=== PATIENT | female | born 1970 | race Caucasian/White ===

== ENCOUNTER 2024-10-08 15:31 | Emergency (ER) | payer OTHER ==
[~2024-10-08] VITALS: Ht 167.6 cm; Wt 72.8 kg
[2024-10-08] MEDS ORDERED: SODIUM CHLORIDE 0.9% 1,000 ML IV ONE (17:00)
[2024-10-08] MEDS ORDERED: HYDROmorphone HCL 1 MG/ML SYR IV PRN (17:00)
[2024-10-08 17:06] LABS: BASOPHILS 0.3 % (0.1-1.2); EOSINOPHILS 0.2 % (0.7-5.8); LYMPHOCYTES 19.9 % (19.3-51.7); MCH 28.8 PG (25.6-32.2); MCHC 33.6 g/dL (32.2-35.5); MCV 85.5 fL (79.4-94.8); MONOCYTES 7.5 % (4.7-12.5); NEUTROPHILS 71.7 % (34.0-71.1); RBC 5.11 M/uL (3.93-5.22)
[2024-10-08 17:21] LABS: ALT (SGPT) 42.0 U/L (14-59); AST (SGOT) 28.0 U/L (15-37); GLOMERULAR FILTRATION RATE,EST 78.0 mL/min (>60); PROTEIN, TOTAL 8.0 g/dL (6.4-8.2); UREA NITROGEN 10.0 mg/dL (7-18)
[2024-10-08 17:45] LABS: BLOOD/HGB, URINE NEGATIVE (Negative); KETONE, URINE TRACE (Negative); LEUK ESTERASE, URINE NEGATIVE (negative); NITRITE, URINE NEGATIVE (negative)
[2024-10-08] MEDS ORDERED: METRONIDAZOLE500 MG PO (18:47)
[2024-10-08] MEDS ORDERED: ONDANSETRON ODT4 MG PO (18:47)
[2024-10-08] MEDS ORDERED: HYDROCODON-ACE1 EA10 PO (18:47)
[2024-10-08] MEDS ORDERED: AMOX TR-K CLV1 EAC1 PO (18:47)
[2024-10-08] MEDS ORDERED: AMOXICILLIN/CLAVULANATE K 875 MG TAB PO ONE (19:00)
[2024-10-08] MEDS ORDERED: ONDANSETRON 4 MG HOME.PACK SL ONE (19:15)
[2024-10-08] MEDS ORDERED: HYDROCODONE BIT/ACETAMINOPHEN 5/325 MG 1 TAB HOME.PACK PO ONE (19:15)
[2024-10-08 19:23] VITALS: BP 123/78
== END 2024-10-08 19:25 | disposition home or self-care (01) ==
LOC: ED 15:31
PROVIDERS: Emergency Medicine
DX: K57.32 Diverticulitis of large intestine without perforation or abscess without bleeding (principal); Z88.2 Allergy status to sulfonamides
CPT/HCPCS: 36415; 74177; 80053; 81003; 85025; 96375; 99284-25; A9270; J1171; J2405; J7030; Q9967

== ENCOUNTER 2025-03-01 11:57 | Day surgery (SDC) | payer OTHER ==
[~2025-03-01] VITALS: Ht 167.6 cm; Wt 73.0 kg
[~2025-03-01 11:57] MED LIST: AMOX TR-K CLV1 EAC1 PO; BENADRYL25 MG PO; CLONAZEPAM1 MG PO; FLUOXETINE HCL40 MG PO; HYDROCODON-ACE1 EA10 PO; IBLOOD GLUCOSE TEST STRIP 1 EA TEST VI PRN; LACTATED RINGER'S 1,000 ML IV SCH; LIDOCAINE HCL 1% 5 ML SDV INJ ONE; METRONIDAZOLE500 MG PO; MULTI VITAMIN1 EACH PO; OMEPRAZOLE20 MG PO; ONDANSETRON ODT4 MG PO; VITAMIN C500 M4 PO
[2025-03-01 12:25] VITALS: BP 128/78
[2025-03-01] MEDS ORDERED: LIDOCAINE HCL 2% 5 ML SDV ONE (13:13)
--- NOTE | 2025-03-01 14:22 | NUR ---
03/01/25 1422 Micki Germain 1418: PT ARRIVES TO PACU NON AROUSAL. PT CONNECTED TO MONITORS. REPORT RECEIVED FROM PREVENTIVE MEDICINE OFFICER AND CHARGE PREPARATION TECHNICIAN.
[2025-03-01 15:16] VITALS: BP 138/97
[2025-03-02] MEDS ORDERED: HYDROCODON-ACE1 EA10 PO (19:44)
== END 2025-03-01 15:28 | disposition home or self-care (01) ==
LOC: DS 11:57
PROVIDERS: ATTEND Surgery
PROC: 0DBN8ZX Excision of Sigmoid Colon, Via Natural or Artificial Opening Endoscopic, Diagnostic (ICD-10-PCS; 2025-03-01)
PROC: 0DBP8ZX Excision of Rectum, Via Natural or Artificial Opening Endoscopic, Diagnostic (ICD-10-PCS; principal; 2025-03-01 12:50)
DX: Z12.11 Encounter for screening for malignant neoplasm of colon (principal); D12.5 Benign neoplasm of sigmoid colon; K62.1 Rectal polyp; K57.30 Diverticulosis of large intestine without perforation or abscess without bleeding; K21.9 Gastro-esophageal reflux disease without esophagitis; F41.1 Generalized anxiety disorder; F43.10 Post-traumatic stress disorder, unspecified; Z79.899 Other long term (current) drug therapy; Z88.1 Allergy status to other antibiotic agents; Z88.8 Allergy status to other drugs, medicaments and biological substances
CPT/HCPCS: 00811; 88305; J2003; J2704; J7121

== ENCOUNTER 2025-03-02 15:12 | Emergency (ER) | payer OTHER ==
[~2025-03-02] VITALS: Ht 167.6 cm; Wt 72.1 kg
[~2025-03-02 15:12] MED LIST changes: -IBLOOD GLUCOSE TEST STRIP 1 EA TEST VI PRN; -LACTATED RINGER'S 1,000 ML IV SCH; -LIDOCAINE HCL 1% 5 ML SDV INJ ONE
[2025-03-02] MEDS ORDERED: HYDROCODONE/ACETA 7.5/325 TAB PO ONE (18:45)
[2025-03-02] MEDS ORDERED: KETOROLAC TROMETHAMINE 60 MG/2 ML VIAL IM ONE (18:45)
[2025-03-02] MEDS ORDERED: ACETAMINOPHEN 325 MG TAB PO ONE (18:45)
[2025-03-02] MEDS ORDERED: HYDROCODON-ACE1 EA10 PO (19:44)
[2025-03-02] MEDS ORDERED: HYDROCODONE BIT/ACETAMINOPHEN 5/325 MG 1 TAB HOME.PACK PO ONE (20:00)
[2025-03-02 20:08] VITALS: BP 143/80
== END 2025-03-02 20:10 | disposition home or self-care (01) ==
LOC: ED 15:12
DX: M54.50 Low back pain, unspecified (principal); Z79.899 Other long term (current) drug therapy; Z88.2 Allergy status to sulfonamides
CPT/HCPCS: 96372; 99283; A9270; J1885